=== PATIENT | male | born 1990 | race Caucasian/White ===

== ENCOUNTER 2022-12-25 08:07 | Inpatient (IN) | payer SELFPAY ==
[~2022-12-25] VITALS: Ht 177.8 cm; Wt 158.7 kg
[2022-12-25] MEDS ORDERED: NS 1,000 ML IV ONE (09:45)
[2022-12-25] MEDS ORDERED: ONDANSETRON 4MG 2ML VIAL IV ONE ×2 (09:45→13:35)
[2022-12-25] MEDS ORDERED: KETOROLAC 30 MG/ML 1ML VIAL IV ONE (09:45)
[2022-12-25 10:30] LABS: BASO # 0.1 10^3/uL (0.0-0.2); BASO % 0.7 % (0.0-1.0); EOS % 0.4 % (0.0-3.0); HEMOGLOBIN 16.1 g/dl (13.5-17.5); LYMPH # 1.3 10^3/uL (1.5-5.0); LYMPH % 13.2 % (24.0-44.0); MEAN CORPUSCULAR HEMOGLOBIN 27.9 pg (27.0-33.0); MEAN CORPUSCULAR HGB CONC 34.3 g/dl (32.0-36.5); MEAN CORPUSCULAR VOLUME 81.3 fl (80.0-96.0); MONO # 0.6 10^3/uL (0.0-0.8); MONO % 6.4 % (2.0-8.0); NEUTROPHILS # 7.9 10^3/uL (1.5-8.5); NEUTROPHILS % 78.9 % (36.0-66.0); PLATELET COUNT, AUTOMATED 304 10^3/uL (150-450); RED BLOOD COUNT 5.78 10^6/uL (4.30-6.10); WHITE BLOOD COUNT 10.1 10^3/uL (4.0-10.0)
[2022-12-25] MEDS ORDERED: ISOVUE-370 76% 100ML VIAL As Ordered ONE (10:34)
[2022-12-25 10:53] LABS: ALKALINE PHOSPHATASE 194 U/L (46-116); ALT/SGPT 883 U/L (7.0-40); AST/SGOT 752 U/L (<34); BILIRUBIN,DIRECT 1.1 MG/DL (<0.4); BILIRUBIN,TOTAL 1.9 MG/DL (0.3-1.2); CK-MB VALUE MASS < 1.0 NG/ML (<3.6); TOTAL PROTEIN 7.6 G/DL (5.7-8.2)
[2022-12-25] MEDS ORDERED: MORPHINE 4 MG/ML 1ML VIAL IV ONE (10:55)
[2022-12-25 11:03] LABS: CPK CREATINE PHOSPHOKINASE 142 U/L (46-171)
[2022-12-25 11:21] LABS: LIPASE > 3500 U/L (12-53)
[2022-12-25] MEDS ORDERED: HYDROMORPHONE HCL 0.5 MG/ 0.5 ML SYRINGE IV ONE ×2 (11:50→13:35)
[2022-12-25] MEDS ORDERED: LR 1,000 ML IV ONE ×2 (13:05→15:10)
[2022-12-25 14:21] LABS: HEPATITIS C VIRUS ABY INDEX 0.13 INDEX (<0.8)
[2022-12-25 14:22] LABS: HEPATITIS B CORE ANTIBODY IGM NEGATIVE (NEGATIVE)
[2022-12-25 15:06] LABS: TRIGLYCERIDES LEVEL 84 MG/DL (<150)
[2022-12-25] MEDS: LR 1,000 ML IV SCH (15:10)
[2022-12-25] MEDS ORDERED: MORPHINE 2 MG/ML 1ML VIAL IV PRN (15:10)
[2022-12-25] MEDS ORDERED: MORPHINE 4 MG/ML 1ML VIAL IV PRN (15:10)
[2022-12-25] MEDS ORDERED: MED REC IN PROGRESS XX SCH (15:40)
[2022-12-25] MEDS ORDERED: HYDROMORPHONE HCL 0.5 MG/ 0.5 ML SYRINGE IV PRN (17:15)
[2022-12-25 17:58] LABS: CHOLESTEROL RISK RATIO 5.85 (<5); HDL CHOLESTEROL 52.3 MG/DL (>40); LDL CHOLESTEROL 235.3 MG/DL (<100); NON-HDL-C 253.7 MG/DL
[2022-12-25 19:24] LABS: SALICYLATE LEVEL < 3.0 MG/DL (<30)
[2022-12-25 19:26] LABS: ACETAMINOPHEN LEVEL < 2.0 UG/ML (10.0-20.0)
[2022-12-25] MEDS: HYDROMORPHONE HCL 0.5 MG/ 0.5 ML SYRINGE IV PRN (20:50)
[2022-12-25] MEDS: PIPERACILLIN/TAZOBACTAM SOD 3.375 GM in D5W MINI-BAG PLUS 50 ML IV SCH (21:01)
[2022-12-25 23:11] VITALS: BP 141/91; TEMP 97.2; O2SAT 96
[2022-12-26] VITALS (7 sets, daily range): BP systolic 120–138; BP diastolic 70–82; TEMP 96.9–97.9; O2SAT 92–96
[2022-12-26] MEDS: ONDANSETRON 4MG 2ML VIAL IV PRN ×3 (00:13→17:06)
[2022-12-26] MEDS: LR 1,000 ML IV SCH ×2 (00:13→09:42)
[2022-12-26] MEDS: HYDROMORPHONE HCL 0.5 MG/ 0.5 ML SYRINGE IV PRN ×2 (01:45→09:50)
[2022-12-26] MEDS ORDERED: TUMS500C PO (01:55)
[2022-12-26] MEDS ORDERED: OMEP-173 PO (01:55)
[2022-12-26] MEDS ORDERED: HOME MED LIST COMPLETE! XX SCH (01:55)
[2022-12-26] MEDS: PIPERACILLIN/TAZOBACTAM SOD 3.375 GM in D5W MINI-BAG PLUS 50 ML IV SCH ×4 (02:38→20:49)
[2022-12-26] MEDS: HEPARIN SOD (PORCINE) 5000UNITS/ML 1ML VIAL/SYRINGE SQ SCH ×3 (06:17→20:55)
[2022-12-26 07:02] LABS: HEMATOCRIT 45.6 % (42.0-52.0); MEAN CORPUSCULAR HEMOGLOBIN 27.5 pg (27.0-33.0); MEAN CORPUSCULAR HGB CONC 32.9 g/dl (32.0-36.5); MEAN CORPUSCULAR VOLUME 83.5 fl (80.0-96.0); PLATELET COUNT, AUTOMATED 248 10^3/uL (150-450); RED BLOOD COUNT 5.46 10^6/uL (4.30-6.10); WHITE BLOOD COUNT 10.5 10^3/uL (4.0-10.0)
[2022-12-26 07:52] LABS: ALBUMIN 3.3 G/DL (3.2-5.2); ALKALINE PHOSPHATASE 206 U/L (46-116); ALT/SGPT 812 U/L (7.0-40); AST/SGOT 450 U/L (<34); BILIRUBIN,TOTAL 2.9 MG/DL (0.3-1.2); BLOOD UREA NITROGEN 8 MG/DL (9-23); CALCIUM LEVEL 8.8 MG/DL (8.5-10.1); CARBON DIOXIDE LEVEL 27 MMOL/L (20-31); CHLORIDE LEVEL 102 MMOL/L (98-107); CREATININE FOR GFR 0.78 MG/DL (0.70-1.30); GLOMERULAR FILTRATION RATE > 60.0 (>60); GLUCOSE, FASTING 96 MG/DL (60-100); LIPASE 984 U/L (12-53); MAGNESIUM LEVEL 2.1 MG/DL (1.8-2.4); POTASSIUM SERUM 3.7 MMOL/L (3.5-5.1); SODIUM LEVEL 139 MMOL/L (136-145); TOTAL PROTEIN 6.5 G/DL (5.7-8.2)
[2022-12-26] MEDS: D5W/0.45% SODIUM CHLORIDE 1,000 ML IV SCH ×2 (13:31→20:49)
[2022-12-26 14:35] LABS: ALBUMIN 3.5 G/DL (3.2-5.2); ALKALINE PHOSPHATASE 214 U/L (46-116); ALT/SGPT 800 U/L (7.0-40); AST/SGOT 354 U/L (<34); BILIRUBIN,TOTAL 2.7 MG/DL (0.3-1.2); BLOOD UREA NITROGEN 9 MG/DL (9-23); CALCIUM LEVEL 8.9 MG/DL (8.5-10.1); CARBON DIOXIDE LEVEL 28 MMOL/L (20-31); CHLORIDE LEVEL 102 MMOL/L (98-107); CREATININE FOR GFR 0.78 MG/DL (0.70-1.30); GLOMERULAR FILTRATION RATE > 60.0 (>60); GLUCOSE, FASTING 84 MG/DL (60-100); POTASSIUM SERUM 3.9 MMOL/L (3.5-5.1); SODIUM LEVEL 140 MMOL/L (136-145); TOTAL PROTEIN 6.5 G/DL (5.7-8.2)
[2022-12-26] MEDS: KETOROLAC 30 MG/ML 1ML VIAL IV SCH ×2 (17:01→20:49)
[2022-12-27] MEDS: KETOROLAC 30 MG/ML 1ML VIAL IV SCH ×4 (02:17→21:00)
[2022-12-27] MEDS: PIPERACILLIN/TAZOBACTAM SOD 3.375 GM in D5W MINI-BAG PLUS 50 ML IV SCH ×4 (02:18→21:00)
[2022-12-27] MEDS: HEPARIN SOD (PORCINE) 5000UNITS/ML 1ML VIAL/SYRINGE SQ SCH ×3 (05:19→21:16)
[2022-12-27] MEDS: D5W/0.45% SODIUM CHLORIDE 1,000 ML IV SCH ×2 (05:19→09:07)
[2022-12-27 06:00] VITALS: BP 120/58; TEMP 98.1; O2SAT 93
[2022-12-27] MEDS: ONDANSETRON 4MG 2ML VIAL IV PRN ×2 (07:33→07:34)
[2022-12-27 08:00] VITALS: O2SAT 96
[2022-12-27 08:20] LABS: BASO % 0.4 % (0.0-1.0); EOS # 0.2 10^3/uL (0.0-0.5); EOS % 2.2 % (0.0-3.0); HEMATOCRIT 40.3 % (42.0-52.0); HEMOGLOBIN 13.3 g/dl (13.5-17.5); LYMPH # 1.3 10^3/uL (1.5-5.0); LYMPH % 11.5 % (24.0-44.0); MEAN CORPUSCULAR HEMOGLOBIN 27.7 pg (27.0-33.0); MONO # 1.3 10^3/uL (0.0-0.8); MONO % 11.3 % (2.0-8.0); NEUTROPHILS # 8.2 10^3/uL (1.5-8.5); NEUTROPHILS % 74.1 % (36.0-66.0); PLATELET COUNT, AUTOMATED 218 10^3/uL (150-450); WHITE BLOOD COUNT 11.1 10^3/uL (4.0-10.0)
[2022-12-27 08:44] LABS: LIPASE 281 U/L (12-53)
[2022-12-27 09:11] LABS: ALKALINE PHOSPHATASE 189 U/L (46-116); ALT/SGPT 519 U/L (7.0-40); AST/SGOT 146 U/L (<34); BILIRUBIN,TOTAL 1.4 MG/DL (0.3-1.2); BLOOD UREA NITROGEN 7 MG/DL (9-23); CALCIUM LEVEL 8.2 MG/DL (8.5-10.1); CARBON DIOXIDE LEVEL 28 MMOL/L (20-31); CHLORIDE LEVEL 101 MMOL/L (98-107); CREATININE FOR GFR 0.84 MG/DL (0.70-1.30); GLOMERULAR FILTRATION RATE > 60.0 (>60); GLUCOSE, FASTING 117 MG/DL (60-100); POTASSIUM SERUM 3.5 MMOL/L (3.5-5.1); SODIUM LEVEL 137 MMOL/L (136-145)
[2022-12-27] MEDS: NS 1,000 ML IV SCH ×2 (11:14→21:02)
[2022-12-27] MEDS: INSULIN LISPRO (NovoLOG) PER UNIT SC SCH ×2 (12:00→17:30)
[2022-12-27] MEDS ORDERED: SIMETHICONE 80MG CHEW TAB PO ONE (13:45)
[2022-12-27] MEDS ORDERED: PILL CUTTER 1 EACH XX PRN (13:55)
[2022-12-27 14:00] VITALS: BP 141/82; TEMP 98.1; O2SAT 94
[2022-12-27] MEDS ORDERED: FIORICET TAB PO ONE (14:00)
[2022-12-27] MEDS ORDERED: FIORICET TAB PO PRN (18:00)
[2022-12-27 20:00] VITALS: BP 134/78; TEMP 98; O2SAT 95
[2022-12-27] MEDS ORDERED: SIMETHICONE 80MG CHEW TAB PO PRN (20:00)
[2022-12-27] MEDS ORDERED: INSULIN LISPRO (NovoLOG) PER UNIT SC SCH (21:00)
[2022-12-28] MEDS: KETOROLAC 30 MG/ML 1ML VIAL IV SCH ×2 (02:34→08:00)
[2022-12-28] MEDS: PIPERACILLIN/TAZOBACTAM SOD 3.375 GM in D5W MINI-BAG PLUS 50 ML IV SCH ×2 (02:34→09:00)
[2022-12-28 06:16] VITALS: BP 120/73; TEMP 97.7; O2SAT 93
[2022-12-28] MEDS: NS 1,000 ML IV SCH (06:18)
[2022-12-28] MEDS: HEPARIN SOD (PORCINE) 5000UNITS/ML 1ML VIAL/SYRINGE SQ SCH (06:18)
[2022-12-28 06:36] LABS: BASO # 0.1 10^3/uL (0.0-0.2); BASO % 0.6 % (0.0-1.0); EOS # 0.5 10^3/uL (0.0-0.5); EOS % 5.2 % (0.0-3.0); HEMATOCRIT 38.6 % (42.0-52.0); HEMOGLOBIN 12.6 g/dl (13.5-17.5); LYMPH % 20.9 % (24.0-44.0); MEAN CORPUSCULAR HEMOGLOBIN 27.9 pg (27.0-33.0); MEAN CORPUSCULAR HGB CONC 32.6 g/dl (32.0-36.5); MEAN CORPUSCULAR VOLUME 85.4 fl (80.0-96.0); MONO # 0.9 10^3/uL (0.0-0.8); MONO % 9.5 % (2.0-8.0); NEUTROPHILS # 6.2 10^3/uL (1.5-8.5); NEUTROPHILS % 63.3 % (36.0-66.0); PLATELET COUNT, AUTOMATED 186 10^3/uL (150-450); RED BLOOD COUNT 4.52 10^6/uL (4.30-6.10); WHITE BLOOD COUNT 9.8 10^3/uL (4.0-10.0)
[2022-12-28 07:05] LABS: ALBUMIN 2.6 G/DL (3.2-5.2); ALKALINE PHOSPHATASE 139 U/L (46-116); ALT/SGPT 326 U/L (7.0-40); AST/SGOT 58 U/L (<34); BILIRUBIN,TOTAL 0.9 MG/DL (0.3-1.2); BLOOD UREA NITROGEN 8 MG/DL (9-23); CARBON DIOXIDE LEVEL 25 MMOL/L (20-31); CHLORIDE LEVEL 107 MMOL/L (98-107); CREATININE FOR GFR 0.84 MG/DL (0.70-1.30); GLOMERULAR FILTRATION RATE > 60.0 (>60); GLUCOSE, FASTING 87 MG/DL (60-100); POTASSIUM SERUM 3.5 MMOL/L (3.5-5.1); SODIUM LEVEL 140 MMOL/L (136-145); TOTAL PROTEIN 5.4 G/DL (5.7-8.2)
[2022-12-28] MEDS: INSULIN LISPRO (NovoLOG) PER UNIT SC SCH ×2 (07:30→12:00)
[2022-12-28] MEDS ORDERED: CIPR-249 PO (08:25)
[2022-12-28] MEDS ORDERED: PERC5TAB12 PO (08:25)
[2022-12-28] MEDS ORDERED: SIME80TA16 PO (08:25)
[2022-12-28] MEDS ORDERED: METR-265 PO (08:25)
[2022-12-28] MEDS ORDERED: BACI1CAP PO (08:25)
[2022-12-28] MEDS ORDERED: SENO8.6T10 PO (08:44)
[2022-12-28 10:12] LABS: HEMOGLOBIN A1c 5.8 % (4.0-6.0)
== END 2022-12-28 12:30 | disposition home or self-care (01) ==
LOC: M ED 08:07 → M ED INP 15:04 → M MS4PR 22:55
PROVIDERS: ADMIT Internal Medicine; ATTEND General Practice
DX: K80.70 Calculus of gallbladder and bile duct without cholecystitis without obstruction (principal); K85.10 Biliary acute pancreatitis without necrosis or infection; E66.01 Morbid (severe) obesity due to excess calories; Z68.43 Body mass index [BMI] 50.0-59.9, adult; E78.5 Hyperlipidemia, unspecified

== ENCOUNTER 2023-01-30 12:48 | Inpatient (IN) | payer OTHER, SELFPAY ==
[~2023-01-30] VITALS: Ht 177.8 cm; Wt 144.5 kg
[~2023-01-30 12:48] MED LIST: BACI1CAP PO; CIPR-249 PO; METR-265 PO; OMEP-173 PO; PERC5TAB12 PO; SENO8.6T10 PO; SIME80TA16 PO; TUMS500C PO
[2023-01-30] MEDS ORDERED: NS 1,000 ML IV ONE ×2 (14:40→18:45)
[2023-01-30] MEDS ORDERED: MORPHINE 4 MG/ML 1ML VIAL IV ONE ×2 (14:40→19:05)
[2023-01-30] MEDS ORDERED: ONDANSETRON 4MG 2ML VIAL IV ONE (14:40)
[2023-01-30 14:41] LABS: BASO # 0.1 10^3/uL (0.0-0.2); BASO % 0.9 % (0.0-1.0); EOS # 0.2 10^3/uL (0.0-0.5); EOS % 2.5 % (0.0-3.0); HEMATOCRIT 45.4 % (42.0-52.0); HEMOGLOBIN 14.9 g/dl (13.5-17.5); LYMPH # 1.7 10^3/uL (1.5-5.0); LYMPH % 17.1 % (24.0-44.0); MEAN CORPUSCULAR HEMOGLOBIN 27.5 pg (27.0-33.0); MEAN CORPUSCULAR HGB CONC 32.8 g/dl (32.0-36.5); MEAN CORPUSCULAR VOLUME 83.8 fl (80.0-96.0); MONO # 0.8 10^3/uL (0.0-0.8); MONO % 8.5 % (2.0-8.0); NEUTROPHILS # 6.9 10^3/uL (1.5-8.5); NEUTROPHILS % 70.7 % (36.0-66.0); PLATELET COUNT, AUTOMATED 244 10^3/uL (150-450); RED BLOOD COUNT 5.42 10^6/uL (4.30-6.10); WHITE BLOOD COUNT 9.7 10^3/uL (4.0-10.0)
[2023-01-30] MEDS ORDERED: KETOROLAC 30 MG/ML 1ML VIAL IV ONE (14:45)
[2023-01-30] MEDS ORDERED: PANTOPRAZOLE 40MG VIAL IV ONE (14:45)
[2023-01-30 15:09] LABS: ALBUMIN 3.4 G/DL (3.2-5.2); ALKALINE PHOSPHATASE 117 U/L (46-116); ALT/SGPT 109 U/L (7.0-40); AST/SGOT 73 U/L (<34); BILIRUBIN,DIRECT 0.5 MG/DL (<0.4); BILIRUBIN,TOTAL 0.9 MG/DL (0.3-1.2); BLOOD UREA NITROGEN 8 MG/DL (9-23); CALCIUM LEVEL 8.9 MG/DL (8.5-10.1); CARBON DIOXIDE LEVEL 27 MMOL/L (20-31); CHLORIDE LEVEL 106 MMOL/L (98-107); CREATININE FOR GFR 0.88 MG/DL (0.70-1.30); GLOMERULAR FILTRATION RATE > 60.0 (>60); GLUCOSE, FASTING 94 MG/DL (60-100); POTASSIUM SERUM 4.4 MMOL/L (3.5-5.1); SODIUM LEVEL 139 MMOL/L (136-145); TOTAL PROTEIN 6.8 G/DL (5.7-8.2)
[2023-01-30 15:24] LABS: LIPASE 2531 U/L (12-53)
[2023-01-30] MEDS ORDERED: PANT20TA6 PO (19:37)
[2023-01-30] MEDS ORDERED: ANTI2TAB17 PO (19:38)
[2023-01-30] MEDS ORDERED: HOME MED LIST COMPLETE! XX SCH (19:40)
[2023-01-30] MEDS ORDERED: med rec comment (19:56)
[2023-01-30] MEDS: LR 1,000 ML IV SCH (20:25)
[2023-01-30] MEDS ORDERED: MORPHINE 2 MG/ML 1ML VIAL IV PRN (20:25)
[2023-01-30 21:04] LABS: TRIGLYCERIDES LEVEL 178 MG/DL (<150)
[2023-01-30 23:00] VITALS: BP 111/79; TEMP 97.9; O2SAT 96
[2023-01-30] MEDS: KETOROLAC 30 MG/ML 1ML VIAL IV PRN (23:21)
[2023-01-30] MEDS: ONDANSETRON 4MG 2ML VIAL IV PRN (23:24)
[2023-01-31] MEDS: LR 1,000 ML IV SCH ×4 (03:05→22:32)
[2023-01-31 06:00] VITALS: BP 96/53; TEMP 97.6; O2SAT 95
[2023-01-31 06:05] VITALS: BP 102/58
[2023-01-31 06:44] LABS: HEMATOCRIT 40.5 % (42.0-52.0); MEAN CORPUSCULAR HEMOGLOBIN 27.5 pg (27.0-33.0); MEAN CORPUSCULAR HGB CONC 32.1 g/dl (32.0-36.5); MEAN CORPUSCULAR VOLUME 85.8 fl (80.0-96.0); PLATELET COUNT, AUTOMATED 203 10^3/uL (150-450); RED BLOOD COUNT 4.72 10^6/uL (4.30-6.10)
[2023-01-31 07:06] LABS: LIPASE 111 U/L (12-53)
[2023-01-31 07:08] LABS: BLOOD UREA NITROGEN 8 MG/DL (9-23); CALCIUM LEVEL 8.2 MG/DL (8.5-10.1); CARBON DIOXIDE LEVEL 26 MMOL/L (20-31); CHLORIDE LEVEL 108 MMOL/L (98-107); CREATININE FOR GFR 0.93 MG/DL (0.70-1.30); GLOMERULAR FILTRATION RATE > 60.0 (>60); GLUCOSE, FASTING 85 MG/DL (60-100); MAGNESIUM LEVEL 2.1 MG/DL (1.8-2.4); POTASSIUM SERUM 3.9 MMOL/L (3.5-5.1); SODIUM LEVEL 143 MMOL/L (136-145)
[2023-01-31] MEDS ORDERED: PANTOPRAZOLE 40MG VIAL IV SCH (09:00)
[2023-01-31] MEDS ORDERED: ENOXAPARIN 40MG/0.4ML SYRINGE (J1650 PER 10MG) SC SCH (09:00)
[2023-01-31 09:11] LABS: ALKALINE PHOSPHATASE 101 U/L (46-116); ALT/SGPT 98 U/L (7.0-40); AST/SGOT 45 U/L (<34); BILIRUBIN,TOTAL 0.5 MG/DL (0.3-1.2); BLOOD UREA NITROGEN 9 MG/DL (9-23); CALCIUM LEVEL 8.3 MG/DL (8.5-10.1); CARBON DIOXIDE LEVEL 28 MMOL/L (20-31); CHLORIDE LEVEL 109 MMOL/L (98-107); CREATININE FOR GFR 0.95 MG/DL (0.70-1.30); GLOMERULAR FILTRATION RATE > 60.0 (>60); GLUCOSE, FASTING 86 MG/DL (60-100); POTASSIUM SERUM 3.9 MMOL/L (3.5-5.1); SODIUM LEVEL 144 MMOL/L (136-145); TOTAL PROTEIN 5.7 G/DL (5.7-8.2)
[2023-01-31 14:00] VITALS: BP 114/67; TEMP 96.4; O2SAT 94
[2023-01-31] MEDS: HEPARIN SOD (PORCINE) 5000UNITS/ML 1ML VIAL/SYRINGE SQ SCH (20:39)
[2023-01-31 21:50] VITALS: BP 116/76; TEMP 99; O2SAT 94
[2023-02-01] VITALS (8 sets, daily range): BP systolic 116–144; BP diastolic 65–91; TEMP 95.1–97.5; O2SAT 93–97
[2023-02-01] MEDS: HEPARIN SOD (PORCINE) 5000UNITS/ML 1ML VIAL/SYRINGE SQ SCH ×3 (05:21→21:26)
[2023-02-01] MEDS: LR 1,000 ML IV SCH ×3 (05:21→23:09)
[2023-02-01 07:57] LABS: HEMATOCRIT 44.4 % (42.0-52.0); HEMOGLOBIN 14.4 g/dl (13.5-17.5); MEAN CORPUSCULAR HEMOGLOBIN 27.6 pg (27.0-33.0); MEAN CORPUSCULAR HGB CONC 32.4 g/dl (32.0-36.5); MEAN CORPUSCULAR VOLUME 85.1 fl (80.0-96.0); PLATELET COUNT, AUTOMATED 214 10^3/uL (150-450); RED BLOOD COUNT 5.22 10^6/uL (4.30-6.10); WHITE BLOOD COUNT 6.6 10^3/uL (4.0-10.0)
[2023-02-01 08:00] LABS: ALBUMIN 3.4 G/DL (3.2-5.2); ALKALINE PHOSPHATASE 106 U/L (46-116); ALT/SGPT 93 U/L (7.0-40); AST/SGOT 35 U/L (<34); BILIRUBIN,TOTAL 0.6 MG/DL (0.3-1.2); BLOOD UREA NITROGEN 5 MG/DL (9-23); CALCIUM LEVEL 8.8 MG/DL (8.5-10.1); CARBON DIOXIDE LEVEL 29 MMOL/L (20-31); CHLORIDE LEVEL 104 MMOL/L (98-107); CREATININE FOR GFR 0.91 MG/DL (0.70-1.30); GLOMERULAR FILTRATION RATE > 60.0 (>60); GLUCOSE, FASTING 85 MG/DL (60-100); MAGNESIUM LEVEL 1.9 MG/DL (1.8-2.4); POTASSIUM SERUM 3.8 MMOL/L (3.5-5.1); SODIUM LEVEL 141 MMOL/L (136-145); TOTAL PROTEIN 6.4 G/DL (5.7-8.2)
[2023-02-01] MEDS ORDERED: PANTOPRAZOLE 40MG TAB (PROTONIX) PO SCH (09:00)
[2023-02-01] MEDS ORDERED: ceFAZolin SOD 3 GM in IV 1 EA IV ONE (13:20)
[2023-02-01] MEDS ORDERED: ceFAZolin SOD 1 GM in D5W MINI-BAG PLUS 50 ML IV ONE (14:00)
[2023-02-01] MEDS ORDERED: ceFAZolin SOD 2 GM in IV 1 EA IV ONE (14:00)
[2023-02-01] MEDS ORDERED: LIDOCAINE 1% SDV 30ML VIAL As Ordered ONE (14:06)
[2023-02-01] MEDS ORDERED: SENOKOT S TAB PO PRN (15:25)
[2023-02-01] MEDS ORDERED: SIMETHICONE 80MG CHEW TAB PO PRN (15:25)
[2023-02-01] MEDS ORDERED: ONDANSETRON 4MG 2ML VIAL IV PRN (15:30)
[2023-02-01] MEDS: HYDROMORPHONE HCL 0.5 MG/ 0.5 ML SYRINGE IV PRN ×2 (15:43→16:02)
[2023-02-01] MEDS: ONDANSETRON 4MG 2ML VIAL IV PRN (20:09)
[2023-02-01] MEDS: KETOROLAC 30 MG/ML 1ML VIAL IV PRN (20:10)
[2023-02-01] MEDS: PANTOPRAZOLE 40MG TAB (PROTONIX) PO SCH (21:25)
[2023-02-02 01:22] VITALS: BP 131/93; TEMP 96.8; O2SAT 96
[2023-02-02] MEDS: ONDANSETRON 4MG 2ML VIAL IV PRN (01:35)
[2023-02-02] MEDS: KETOROLAC 30 MG/ML 1ML VIAL IV PRN (01:38)
[2023-02-02] MEDS: LR 1,000 ML IV SCH ×2 (01:45→08:08)
[2023-02-02 05:30] VITALS: BP 130/78; TEMP 96.7; O2SAT 97
[2023-02-02] MEDS: HEPARIN SOD (PORCINE) 5000UNITS/ML 1ML VIAL/SYRINGE SQ SCH (05:44)
[2023-02-02 05:45] VITALS: O2SAT 95
[2023-02-02 06:58] LABS: HEMATOCRIT 43.8 % (42.0-52.0); MEAN CORPUSCULAR HEMOGLOBIN 28.3 pg (27.0-33.0); MEAN CORPUSCULAR HGB CONC 34.2 g/dl (32.0-36.5); MEAN CORPUSCULAR VOLUME 82.6 fl (80.0-96.0); PLATELET COUNT, AUTOMATED 273 10^3/uL (150-450); WHITE BLOOD COUNT 10.7 10^3/uL (4.0-10.0)
[2023-02-02 07:30] LABS: BLOOD UREA NITROGEN 6 MG/DL (9-23); CALCIUM LEVEL 8.9 MG/DL (8.5-10.1); CARBON DIOXIDE LEVEL 25 MMOL/L (20-31); CHLORIDE LEVEL 102 MMOL/L (98-107); CREATININE FOR GFR 0.79 MG/DL (0.70-1.30); GLOMERULAR FILTRATION RATE > 60.0 (>60); GLUCOSE, FASTING 102 MG/DL (60-100); SODIUM LEVEL 138 MMOL/L (136-145)
[2023-02-02] MEDS: PANTOPRAZOLE 40MG TAB (PROTONIX) PO SCH (08:25)
[2023-02-02 09:33] VITALS: BP 130/71; TEMP 97.1; O2SAT 95
[2023-02-02 13:21] VITALS: BP 123/67; TEMP 96.2; O2SAT 94
[2023-02-02] MEDS ORDERED: MELO15TA28 PO (13:36)
== END 2023-02-02 14:47 | disposition home or self-care (01) | DRG 417 ==
LOC: M ED 12:48 → M ED INP 20:23 → M MS4PR 22:57
PROVIDERS: ADMIT Internal Medicine; ATTEND Internal Medicine
PROC: 0FT44ZZ Resection of Gallbladder, Percutaneous Endoscopic Approach (ICD-10-PCS; principal; 2023-02-01 12:00)
DX: K81.0 Acute cholecystitis (principal); K85.90 Acute pancreatitis without necrosis or infection, unspecified; K21.9 Gastro-esophageal reflux disease without esophagitis; Z79.899 Other long term (current) drug therapy